=== PATIENT | female | born 1965 | race Hispanic/Latino ===

== ENCOUNTER 2020-06-15 18:33 | Emergency (ER) | payer OTHER ==
[~2020-06-15] VITALS: Ht 157.5 cm; Wt 63.5 kg
--- NOTE | 2020-06-15 19:06 | Emergency Department Note ---
History of Present Illnes History of Present Illness Chief Complaint: COVID PUI History of Present Illness This is a 54 year old female, with no significant past medical history, who presents with a four-day history of intermittent diarrhea and lower abdominal pain. Patient states that she has had 4-5 loose, watery stools, with occasional mucus, over the last 4 days. She denies any melena or hematochezia. She has also had intermittent, mid to lower, crampy abdominal pain. She has had no nausea or vomiting. She has had no known fever, until arrival to the ED today, where her temp is 100.3. She worked today, as a [employer] truck driver, and had her temperature checked at the beginning of her shift, and it was normal. Other than her work exposure, she denies any known Covid exposure. She has had no abdominal surgeries. Historian: Patient Arrival Mode: Car Epic Cadence Analyst Required: No Onset (how long ago): day(s) (4) Location: mid to lower abdominal pain Quality: crampy Radiation: Reports non-radiation Severity: moderate Onset quality: sudden Duration (how long): day(s) (4) Timing of current episode: intermittent Progression: waxing and waning Chronicity: new Context: Denies recent surgery, Denies recent travel, Denies trauma/injury Relieving factors: none Exacerbating factors: none Associated symptoms: Denies chest pain, Denies cough, Denies fever/chills, Denies headaches, Denies nausea/vomiting, Denies shortness of breath Treatments prior to arrival: other (She tried Pepto Bismol, without improvement and she started Imodium today. She has ahd 3 doses of Imodium, today. ) Past Medical/Family History Physician Review I have reviewed the patient's past medical and family history. Any updates have been documented here. Past Medical History Recent Fever: Yes Clinical Suspicion of Infectio: Yes New/Unexplained Change in Ment: No Past Medical History: None Past Surgical History: None Social History Smoking Cessation: Never Smoker Counseling Performed: No Alcohol Use: None Any Illegal Drug Use: No TB Exposure/Symptoms: No Physically hurt or threatened: No Family History Family history of heart diseas: No Other Any Pre-Existing Lines (PICC,: No Is patient up to date on immun: No Review of Systems Review of Systems Constitutional: Denies chills, Denies fever, Denies malaise EENTM: Reports no symptoms Cardiovascular: Denies chest pain, Denies palpitations Respiratory: Denies cough, Denies dyspnea, Denies dyspnea on exertion Gastrointestinal: Reports abdominal pain, Reports diarrhea; Denies nausea, Denies vomiting Genitourinary: Denies dysuria, Denies frequency Musculoskeletal: Denies back pain, Denies muscle stiffness, Denies neck pain Integumentary: Denies change in color, Denies rash Neurological: Denies numbness, Denies weakness Psychological: Denies anxiety Endocrine: Reports no symptoms Hematological/Lymphatic: Reports no symptoms Review of other systems: All other systems negative Physical Exam Related Data Allergies: Coded Allergies: No Known Allergies (Unverified , 06/15/20) Triage Vital Signs Vital Signs Date Time Temp Pulse Resp B/P (MAP) Pulse Ox O2 Delivery O2 Flow Rate FiO2 06/15/20 18:46 100.3 102 16 149/86 100 Room Air Physical Exam CONSTITUTIONAL Constitutional: Present well-developed, Present well-nourished; Absent distressed, Absent ill appearing HENT HENT: Present normocephalic, Present atraumatic, Present oropharynx clear/moist, Present nose normal; Absent nasal congestion, Absent rhinorrhea HENT L/R: Present left ext ear normal, Present right ext ear normal EYES Eyes: Reports PERRL, Reports conjunctivae normal NECK Neck: Present ROM normal; Absent cervical adenopathy PULMONARY Pulmonary: Present effort normal, Present breath sounds normal CARDIOVASCULAR Cardiovascular: Present regular rhythm, Present heart sounds normal, Present capillary refill normal, Present normal rate; Absent murmur GASTROINTESTINAL Abdominal: Present soft, Present bowel sounds normal, Present tender (diffuse abd ttp, more so on the right, mid-abdomen, no rebound or guarding); Absent distension GENITOURINARY Genitourinary: Present exam deferred SKIN Skin: Present warm, Present dry; Absent rash MUSCULOSKELETAL Musculoskeletal: Present ROM normal; Absent tenderness NEUROLOGICAL Neurological: Present alert, Present oriented x 3, Present no gross motor or sensory deficits PSYCHOLOGICAL Psychological: Present mood/affect normal, Present judgement normal Results Laboratory Laboratory CBC - nl except for H/H - 10.8/35.6; Metlyte - nl except for Cr = 0.4, K+ = 3.2, Cl = 97 Liver Panel - normal; UA - federico- mod, ket - 80 mg/dl, blo - mod, pro - trace, nit-neg, jeovany - neg; Lab results reviewed: Yes Imaging Imaging results reviewed: Yes Impressions [place] [id number] Patient Name: WALI BRIONES MR #: [id number] : 1965 Age/Sex: 54/F Req #: [id number] Adm Physician: Ordered by: RADHA RIGGINS MD Report #: [id number] Location: [facility] Room/Bed: Procedure: [id number] HOPD/CT ABD/PEL WITH CONTRAST-HOPD Exam Date: 06/15/20 Exam Time: 2027 REPORT STATUS: Signed ADDENDUM #1 Addendum to Impression #2 in the region report: There is extensive diverticulosis coli. However, the colonic inflammation is likely due to inflammatory or infectious colitis rather than diverticulitis. Signed by: Thania Saeed MD on 06/15/2020 9:29 PM ORIGINAL REPORT EXAM: CT Abdomen and Pelvis WITH contrast INDICATION: ^abdominal pain, fever, diarrhea COMPARISON: None. TECHNIQUE: Abdomen and pelvis were scanned utilizing a multidetector helical scanner from the lung base to the pubic symphysis after administration of IV contrast. Coronal and sagittal reformations were obtained. Routine protocol was performed. Scan was performed when during portal venous phase. IV CONTRAST: 100 mL of Isovue 370 ORAL CONTRAST: None COMPLICATIONS: None RADIATION DOSE: Total DLP: 457 mGy*cm Estimated effective dose: (DLP x 0.015 x size factor) mSv CTDIvol has been reviewed. It is below the limits set by the Radiation Protocol Committee (RPC). Dose modulation, iterative reconstruction, and/or weight based adjustment of the mA/kV was utilized to reduce the radiation dose to as low as reasonably achievable. FINDINGS: LINES and TUBES: None. LOWER THORAX: There is bibasilar atelectasis. HEPATOBILIARY: No focal hepatic lesions. No biliary ductal dilation. GALLBLADDER: No radio-opaque stones or sludge. No wall thickening. SPLEEN: No splenomegaly. PANCREAS: No focal masses or ductal dilatation. ADRENALS: No adrenal nodules KIDNEYS/URETERS: Kidneys enhance symmetrically. No hydronephrosis. No cystic or solid mass lesions. No stones. GI TRACT: There is diffuse mucosal wall thickening and submucosal hyperenhancement of the entire colon most pronounced in the cecum and ascending colon. There are prominent colonic haustra particularly in the cecum, ascending and transverse colon (thumbprinting). There is extensive diverticulosis coli. There is diffuse stranding of the pericolonic fat and multiple prominent mesenteric lymph nodes, likely reactive. No evidence of bowel obstruction. No drainable fluid collection. Appendix is not clearly identified. However, no secondary evidence of appendicitis. PELVIC ORGANS/BLADDER: Unremarkable. LYMPH NODES: No lymphadenopathy. VESSELS: Unremarkable. PERITONEUM / RETROPERITONEUM: No free air or fluid. BONES: Unremarkable. SOFT TISSUES: Unremarkable. IMPRESSION: 1. Mucosal wall thickening and submucosal hyperenhancement of the entire colon with peripheral mesenteric fat stranding, most pronounced in the cecum and ascending colon. This most likely represents an infectious versus inflammatory pancolitis. Prominent haustra in the proximal colon can be associated with ulcerative colitis. 2. There is extensive diverticulosis coli. However, the colonic inflammation is likely due to inflammatory or infectious colitis right addended diverticulitis. 3. Prominent mesenteric lymph nodes are likely reactive. Signed by: Thania Saeed MD on 06/15/2020 9:05 PM Dictated By: THANIA SAEED MD 28 Transcribed By: DANGELO on 06/15/202104 COPY TO: RADHA RIGGINS MD~ Assessment & Plan Medical Decision Making MDM - Recommend a very bland diet, avoiding all fried, fatty, fast, and spicy foods. Also recommend that you avoid all dairy products, until your symptoms have resolved. - You need to self quarantine, until the results of your Covid test are available. If your Covid-positive, he may not return to work until you've had at least 5 days without any symptoms including no fever, diarrhea, or abdominal pain. - Staying well-hydrated this very important. Recommend that you drink at least 8 to 1016 ounce bottles of water per day, as well as Pedialyte, NG tube Gatorade. Avoid all juices, sodas, milk products, sweet tea, and any sugary drinks. - Take all medications as directed. - Return to emergency room if you develop worsening symptoms including severe abdominal pain, vomiting with inability to keep medications down, weakness, dizziness, or bloody diarrhea. - Recommend that he began and a probiotic, such as "Align" daily, for the next 14 days, to help replenish your gut bacteria. - We will contact you with your COVID results at [phone], the number that you provided. Assessment & Plan Final Impression: (1) Colitis (2) Suspected 2019 novel coronavirus infection (3) Abdominal pain (4) Diarrhea (5) Fever (6) Hypokalemia Depart Disposition: HOME, SELF-CARE Last Vital Signs Date Time Temp Pulse Resp B/P (MAP) Pulse Ox O2 Delivery O2 Flow Rate FiO2 06/15/20 18:46 100.3 102 16 149/86 100 Room Air Home Meds Active Scripts Potassium Chloride* (K DUR*) 10 Meq Tabcr, 2 TAB PO DAILY for low potassium, #14 TAB 0 Refills Take with food. Prov:RADHA RIGGINS MD 06/16/20 Metronidazole (METRONIDAZOLE) 500 Mg Tablet, 500 MG PO TID for infection for 10 Days, #30 TAB 0 Refills Take ALL antibiotics. Prov:RADHA RIGGINS MD 06/15/20 Dicyclomine Hcl (DICYCLOMINE HCL) 20 Mg Tablet, 20 MG PO Q6H PRN for abdominal pain/cramping, #30 TAB 0 Refills Prov:RADHA RIGGINS MD 06/15/20 Ciprofloxacin Hcl (CIPRO) 500 Mg Tablet, 500 MG PO BID PRN for infection for 10 Days, #20 TAB 0 Refills Take ALL antibiotics. Prov:RADHA RIGGINS MD 06/15/20 Ondansetron (ONDANSETRON ODT) 8 Mg Tab.rapdis, 4 MG PO Q6H PRN for nausea, #30 TAB 0 Refills Prov:RADHA RIGGINS MD 06/15/20 RADHA RIGGINS MD Jun 15, 2020 19:06
[2020-06-15] MEDS ORDERED: SODIUM CHLORIDE 0.9% 1000ML 1,000 ML IV SCH (19:30)
[2020-06-15] MEDS ORDERED: SODIUM CHLORIDE 0.9% 1000ML 1,000 ML ONE (19:38)
[2020-06-15] MEDS ORDERED: POTASSIUM CHLORIDE 20 MEQ TAB CR PO STA (20:17)
[2020-06-15] MEDS ORDERED: POTASSIUM CHLORIDE 20 MEQ TAB CR PO ONE (20:32)
[2020-06-15] MEDS ORDERED: ACETAMINOPHEN 325 MG TAB ONE (20:41)
--- NOTE | 2020-06-15 21:09 | Diagnostic Imaging Report ---
ADDENDUM #1 Addendum to Impression #2 in the region report: There is extensive diverticulosis coli. However, the colonic inflammation is likely due to inflammatory or infectious colitis rather than diverticulitis. Signed by: Valarie Man MD on 06/15/2020 9:29 PM ORIGINAL REPORT EXAM: CT Abdomen and Pelvis WITH contrast INDICATION: ^abdominal pain, fever, diarrhea COMPARISON: None. TECHNIQUE: Abdomen and pelvis were scanned utilizing a multidetector helical scanner from the lung base to the pubic symphysis after administration of IV contrast. Coronal and sagittal reformations were obtained. Routine protocol was performed. Scan was performed when during portal venous phase. IV CONTRAST: 100 mL of Isovue 370 ORAL CONTRAST: None COMPLICATIONS: None RADIATION DOSE: Total DLP: 457 mGy*cm Estimated effective dose: (DLP x 0.015 x size factor) mSv CTDIvol has been reviewed. It is below the limits set by the Radiation Protocol Committee (RPC). Dose modulation, iterative reconstruction, and/or weight based adjustment of the mA/kV was utilized to reduce the radiation dose to as low as reasonably achievable. FINDINGS: LINES and TUBES: None. LOWER THORAX: There is bibasilar atelectasis. HEPATOBILIARY: No focal hepatic lesions. No biliary ductal dilation. GALLBLADDER: No radio-opaque stones or sludge. No wall thickening. SPLEEN: No splenomegaly. PANCREAS: No focal masses or ductal dilatation. ADRENALS: No adrenal nodules KIDNEYS/URETERS: Kidneys enhance symmetrically. No hydronephrosis. No cystic or solid mass lesions. No stones. GI TRACT: There is diffuse mucosal wall thickening and submucosal hyperenhancement of the entire colon most pronounced in the cecum and ascending colon. There are prominent colonic haustra particularly in the cecum, ascending and transverse colon (thumbprinting). There is extensive diverticulosis coli. There is diffuse stranding of the pericolonic fat and multiple prominent mesenteric lymph nodes, likely reactive. No evidence of bowel obstruction. No drainable fluid collection. Appendix is not clearly identified. However, no secondary evidence of appendicitis. PELVIC ORGANS/BLADDER: Unremarkable. LYMPH NODES: No lymphadenopathy. VESSELS: Unremarkable. PERITONEUM / RETROPERITONEUM: No free air or fluid. BONES: Unremarkable. SOFT TISSUES: Unremarkable. IMPRESSION: 1. Mucosal wall thickening and submucosal hyperenhancement of the entire colon with peripheral mesenteric fat stranding, most pronounced in the cecum and ascending colon. This most likely represents an infectious versus inflammatory pancolitis. Prominent haustra in the proximal colon can be associated with ulcerative colitis. 2. There is extensive diverticulosis coli. However, the colonic inflammation is likely due to inflammatory or infectious colitis right addended diverticulitis. 3. Prominent mesenteric lymph nodes are likely reactive. Signed by: Valarie Man MD on 06/15/2020 9:05 PM
[2020-06-15] MEDS ORDERED: IOPAMIDOL 370 MG/ML 200 ML INFUS..BTL INJ ONE (21:29)
[2020-06-15] MEDS ORDERED: SODIUM CHLORIDE 0.9% 50ML 50 ML ONE (21:29)
[2020-06-15] MEDS ORDERED: CIPROFLOXACIN 400 MG/D5W 200ML 200 ML IV SCH (22:00)
[2020-06-15] MEDS ORDERED: METRONIDAZOLE 500MG/NS 100ML 100 ML IV ONE ×2 (22:00→22:07)
[2020-06-15] MEDS ORDERED: DICYCLOMINE HCL 20 MG TAB PO ONE (22:00)
[2020-06-15] MEDS ORDERED: CIPROFLOXACIN 400 MG/D5W 200ML 200 ML IV ONE (22:07)
[2020-06-15] MEDS ORDERED: DICYCLOMINE HCL 10 MG CAP ONE (22:23)
[2020-06-15] MEDS ORDERED: ONDANSETRON ODT8 MG PO (23:50)
[2020-06-15] MEDS ORDERED: CIPRO500 MG PO (23:52)
[2020-06-15] MEDS ORDERED: DICYCLOMINE HCL20 MG PO (23:55)
[2020-06-15] MEDS ORDERED: ONDANSETRON HCL INJ 2MG/ML 2ML 2 MG/ML VIAL ONE (23:56)
[2020-06-15] MEDS ORDERED: METRONIDAZOLE500 MG PO (23:57)
[2020-06-16] MEDS ORDERED: K DUR10 MEQ PO (00:06)
== END 2020-06-16 00:30 | disposition home or self-care (01) ==
LOC: FSED 19:00
DX: K52.9 Noninfective gastroenteritis and colitis, unspecified (principal); R10.30 Lower abdominal pain, unspecified; R50.9 Fever, unspecified; E87.6 Hypokalemia; Z20.828 Contact with and (suspected) exposure to other viral communicable diseases
CPT/HCPCS: 74177; 80053; 81003; 85025; 99284; J0744; J2405; J7030; Q9967; U0002

== ENCOUNTER 2021-06-01 23:53 | Emergency (ER) | payer OTHER ==
[~2021-06-01] VITALS: Ht 160 cm; Wt 63.0 kg
[~2021-06-01 23:53] MED LIST: CIPRO500 MG PO; DICYCLOMINE HCL20 MG PO; K DUR10 MEQ PO; METRONIDAZOLE500 MG PO; ONDANSETRON ODT8 MG PO
[2021-06-02] MEDS ORDERED: AZITHROMYCIN500 MG PO (00:26)
[2021-06-02 00:42] VITALS: BP 139/79
== END 2021-06-02 00:42 | disposition home or self-care (01) ==
LOC: FSED 23:56
DX: R19.7 Diarrhea, unspecified (principal); R50.9 Fever, unspecified; Z87.19 Personal history of other diseases of the digestive system
CPT/HCPCS: 99282